=== PATIENT | male | born 1955 | race American Indian/Alaskan Native ===

== ENCOUNTER 2016-10-05 01:43 | Emergency (ER) | payer SELFPAY ==
[~2016-10-05 01:43] MED LIST: MCR/40125 PO
[2016-10-05 01:48] VITALS: TEMP 36.4
[2016-10-05] MEDS ORDERED: AMLO-110 PO (02:43)
[2016-10-05] MEDS ORDERED: ZNTT/150 PO (02:44)
--- NOTE | 2016-10-05 02:50 | EMERGENCY ROOM VISIT NOTE ---
History Report prepared by Christos: Lobito Joe Under the Supervision of: Dr. Gail Harrison D.O. First contact with patient: 01:54 Chief Complaint: HYPOTENSION Stated Complaint: BP LOW,SHIVERING History of Present Illness The patient is a 61 year old male with a history of tinnitus who presents to the Emergency Room with complaints of resolved global tremors that occurred at approximately 0030. The patient was experiencing rhythmic jerking of his bilateral upper and lower extremities. The episodes lasted approximately one hour. The patient has never had an episode like this before. The patient was conscious and did not appear to be seizing. The patient also has a history of hypertension. 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 History translated by the patient's son. Review of Systems See HPI for pertinent positives & negatives. A total of 10 systems reviewed and were otherwise negative. Past Medical & Surgical Medical Problems: (1) Tinnitus Family History Patient reports no known family medical history. Social History Smoking Status: Never Smoker Housing Status: lives with family Current/Historical Medications Scheduled Amlodipine (Norvasc), 5 MG PO DAILY Ranitidine (Zantac), 150 MG PO HS Telmisartan/Hctz (Micardis Hct 40MG/12.5MG), 1 TAB PO DAILY Allergies Coded Allergies: No Known Allergies (Unverified , 08/04/16) Physical Exam Vital Signs Date Time Temp Pulse Resp B/P Pulse Ox O2 Delivery O2 Flow Rate FiO2 10/05/16 06:05 62 18 129/81 95 Room Air 10/05/16 05:48 61 10/05/16 03:53 62 20 121/82 97 Room Air 10/05/16 02:00 81 10/05/16 02:00 69 18 163/91 97 Room Air 10/05/16 01:48 36.4 73 20 164/103 97 Room Air Physical Exam HEENT: Head - normocephalic and atraumatic Pupils are equal, round, and reactive to light. Extraocular eye muscles are intact, and sclera are anicteric. Nose - moist nasal mucosa without discharge. Mouth - moist buccal mucosa. Oropharynx is nonerythematous and there is no tonsillar exudate or edema noted. Neck: Supple; no JVD, nuchal rigidity, cervical lymphadenopathy. Heart: Regular rate and rhythm. There is a normal S1 and S2 with no murmurs, clicks, or gallops appreciated. Lungs: Clear to auscultation bilaterally with no wheezes, rales, or rhonchi. Abdomen: Soft, completely nontender, nondistended, with good bowel sounds. There are no palpable pulsatile masses or hepatosplenomegaly. There is no guarding, rigidity, or rebound noted. Extremities: No evidence of cyanosis, clubbing, or edema. There are easily palpable peripheral pulses. Skin: warm and dry with good turgor and no rashes. Medical Decision & Procedures ER Provider Diagnostic Interpretation: CT results as stated below per my review and the radiologist's interpretation: CT HEAD: Compared to MR brain 09/15/16. No ICH, mass effect or edema. No evidence of acute cortical stroke. Visualized sinuses and mastoid air cells are clear. Radiologist: Falguni Bowman MD. Laboratory Results 10/05/16 02:45 Red Blood Count 4.35, Mean Corpuscular Volume 85.7, Mean Corpuscular Hemoglobin 29.2, Mean Corpuscular Hemoglobin Concent 34.0, Mean Platelet Volume 9.8, Neutrophils (%) (Auto) 58.1, Lymphocytes (%) (Auto) 28.0, Monocytes (%) (Auto) 9.8, Eosinophils (%) (Auto) 3.7, Basophils (%) (Auto) 0.2, Neutrophils # (Auto) 3.73, Lymphocytes # (Auto) 1.80, Monocytes # (Auto) 0.63, Eosinophils # (Auto) 0.24, Basophils # (Auto) 0.01 10/05/16 02:45 Test 10/05/16 02:45 10/05/16 03:50 White Blood Count 6.42 K/uL (4.8-10.8) Red Blood Count 4.35 M/uL (4.7-6.1) Hemoglobin 12.7 g/dL (14.0-18.0) Hematocrit 37.3 % (42-52) Mean Corpuscular Volume 85.7 fL (80-100) Mean Corpuscular Hemoglobin 29.2 pg (25-34) Mean Corpuscular Hemoglobin Concent 34.0 g/dl (32-36) Platelet Count 284 K/uL (130-400) Mean Platelet Volume 9.8 fL (7.4-10.4) Neutrophils (%) (Auto) 58.1 % Lymphocytes (%) (Auto) 28.0 % Monocytes (%) (Auto) 9.8 % Eosinophils (%) (Auto) 3.7 % Basophils (%) (Auto) 0.2 % Neutrophils # (Auto) 3.73 K/uL (1.4-6.5) Lymphocytes # (Auto) 1.80 K/uL (1.2-3.4) Monocytes # (Auto) 0.63 K/uL (0.11-0.59) Eosinophils # (Auto) 0.24 K/uL (0-0.5) Basophils # (Auto) 0.01 K/uL (0-0.2) RDW Standard Deviation 40.7 fL (36.4-46.3) RDW Coefficient of Variation 12.8 % (11.5-14.5) Immature Granulocyte % (Auto) 0.2 % Immature Granulocyte # (Auto) 0.01 K/uL (0.00-0.02) Prothrombin Time 10.5 SECONDS (9.0-12.0) Prothromb Time International Ratio 1.0 (0.9-1.1) Activated Partial Thromboplast Time 28.5 SECONDS (21.0-31.0) Partial Thromboplastin Ratio 1.1 Anion Gap 9.0 mmol/L (3-11) Estimated GFR () 103.6 Estimated GFR (Non- 89.4 BUN/Creatinine Ratio 18.1 (10-20) Calcium Level 8.7 mg/dl (8.5-10.1) Total Creatine Kinase 191 U/L (39-308) Creatine Kinase MB 3.8 ng/ml (0.5-3.6) Creatine Kinase MB Ratio 2.0 (0-3.0) Troponin I < 0.015 ng/ml (0-0.045) Urine Color YELLOW Urine Appearance CLOUDY (CLEAR) Urine pH 6.0 (4.5-7.5) Urine Specific [place] 1.002 (1.000-1.030) Urine Protein NEG (NEG) Urine Glucose (UA) NEG (NEG) Urine Ketones NEG (NEG) Urine Occult Blood NEG (NEG) Urine Nitrite NEG (NEG) Urine Bilirubin NEG (NEG) Urine Urobilinogen NEG (NEG) Urine Leukocyte Esterase NEG (NEG) Urine WBC (Auto) 1-5 /hpf (0-5) Urine RBC (Auto) 0-4 /hpf (0-4) Urine Hyaline Casts (Auto) 0 /lpf (0-5) Urine Epithelial Cells (Auto) 0-5 /lpf (0-5) Urine Bacteria (Auto) NEG (NEG) Laboratory results per my review. ECG Indication: other (Hypertension) Rate (beats per minute): 68 Rhythm: normal sinus Findings: ST elevation (Leads I and AvL), no acute ischemic change, no ectopy, other (no obvious recipricol changes) ED Course 0150: The patient was evaluated by the [facility]. A twelve-lead EKG was obtained. The patient was observing the welder shielded metal arc and pulse oximeter. 0209: Past medical records reviewed. The patient was evaluated in room A11b. A complete history and physical exam was performed. An IV lock was initiated and labs are drones above. 0245: life manager is attempting to find an old EKG. there is no old EKG for comparison. The patient for CT scan of the brain which was unremarkable. 0245: Upon review of old records from his PCP's office, the patient had an MRI and MRA of the brain in August that were normal. 0540: The patient blood pressure went down to 121/82 on its own. 0545: Explained everything to the patient and his son. They verbalized understanding. The patient is ready for discharge. Medical Decision The patient is a 61 year old male who presents to the ED with tremors. Differential diagnosis includes seizure, hypertensive crisis, rigors. Laboratory interpretation: normal white count, mild anemia with a hemoglobin of 12.7, normal troponin, glucose 111, normal coags, normal renal function, normal urinalyses. The patient has a history of hypertension. His family noted that his blood pressure had gone up and that he seemed to have some shaking in his arms and legs. There is no evidence of seizure activity. He has never had this happen before. I considered the possibility of rigors or shaking chills. However, the patient has no source of infection. He has no leukocytosis or fever at this time. The patient's blood pressure came down nicely on its own he has had no further shaking. He is resting comfortably at this time. I have asked him to follow- up with the PCP with regards to blood pressure. The patient had no strokelike symptoms or TIA symptoms. Impression Primary Impression: Hypertension Additional Impression: Occasional tremors Scribe Attestation The scribe's documentation has been prepared under my direction and personally reviewed by me in its entirety. I confirm that the note above accurately reflects all work, treatment, procedures, and medical decision making performed by me. Departure Information Dispostion Home / Self-Care Referrals No Doctor, Assigned (PCP) Forms HOME CARE DOCUMENTATION FORM, IMPORTANT VISIT INFORMATION, WORK / SCHOOL INSTRUCTIONS Patient Instructions A Signature Page, ED Hypertension Conf Out Of Control, My [facility] Additional Instructions Watch the BP closely. Follow up on Thursday or Thursday for follow up.
[2016-10-05 02:58] LABS: BASO % 0.2 %; BASO ABS # 0.01 K/uL (0-0.2); COMPLETE YES; EOS % 3.7 %; HEMATOCRIT 37.3 % (42-52); IG% 0.2 %; MEAN CELL VOLUME 85.7 fL (80-100); MEAN CORPUSCULAR HEMOGLOBIN 29.2 pg (25-34); MEAN PLATELET VOLUME 9.8 fL (7.4-10.4); MONO % 9.8 %; NEUT % 58.1 %; PLATELET COUNT 284 K/uL (130-400); RED BLOOD COUNT 4.35 M/uL (4.7-6.1); WHITE BLOOD COUNT 6.42 K/uL (4.8-10.8)
[2016-10-05 03:09] LABS: PARTIAL THROMBOPLASTIN RATIO 1.1; PROTHROMBIN TIME (PATIENT) 10.5 SECONDS (9.0-12.0)
[2016-10-05 03:22] LABS: BLOOD UREA NITROGEN 17 mg/dl (7-18); BUN/CREATININE RATIO 18.1 (10-20); CALCIUM 8.7 mg/dl (8.5-10.1); CARBON DIOXIDE 26 mmol/L (21-32); CHLORIDE 102 mmol/L (98-107); CREATININE 0.91 mg/dl (0.60-1.40); GLUCOSE 111 mg/dl (70-99); POTASSIUM 3.5 mmol/L (3.5-5.1); SODIUM 137 mmol/L (136-145)
[2016-10-05 04:04] LABS: URINE APPEARANCE CLOUDY (CLEAR); URINE BILIRUBIN NEG (NEG); URINE COLOR YELLOW; URINE EPITHELIAL CELL AUTO 0-5 /lpf (0-5); URINE NITRITE NEG (NEG); URINE SPECIFIC GRAVITY 1.002 (1.000-1.030); UROBILINOGEN NEG (NEG)
[2016-10-05 04:05] LABS: MANUAL MICROSCOPIC REQUIRED? NO; REVIEW REQ? NO
[2016-10-05 06:05] VITALS: BP 129/81; PULSE 62; O2SAT 95
--- NOTE | 2016-10-05 07:22 | DIAGNOSTIC IMAGING REPORT ---
HEAD CT NONCONTRAST CT DOSE: 537.48 mGy.cm HISTORY: Hypotension. Altered mental status. TECHNIQUE: Multiaxial CT images of the head were performed without the use of intravenous contrast. Automated exposure control was utilized for this study. Comparison: Brain MRI 09/15/2016. Findings: The paranasal sinuses and mastoid air cells are clear. The calvarium and skull base are intact. The ventricles and sulci are within normal limits. There is no mass, hematoma, midline shift, or acute infarct. Impression: No acute intracranial abnormality. Electronically signed by: Jose David M.D. 10/05/2016 7:20 AM Dictated Date/Time: 10/05/2016 7:18 AM
== END 2016-10-05 06:11 | disposition home or self-care (01) ==
LOC: C.EDB 01:44 → C.EDA 06:11
DX: I10 Essential (primary) hypertension (principal); R25.1 Tremor, unspecified; H93.19 Tinnitus, unspecified ear